=== PATIENT | male | born 1970 | race Two or more races ===

== ENCOUNTER 2019-03-09 12:21 | Emergency (ER) | payer OTHER ==
[~2019-03-09] VITALS: Ht 188 cm; Wt 108.9 kg
[2019-03-09] MEDS ORDERED: LEVOTHYROXINE25 MCG PO (13:05)
== END 2019-03-09 18:58 | disposition home or self-care (01) ==
LOC: ER 12:21
DX: K52.89 Other specified noninfective gastroenteritis and colitis (principal)